=== PATIENT | male | born 1940 | race Caucasian/White ===

== ENCOUNTER → 2016-08-29 | Outpatient (CLI) | payer MEDICARE ==
[~2016-08-29] MED LIST: CLEAPOW2 PO; CLON1TAB PO; DIAZ5 PO; ECOT325T PO; FERR325T PO; GABA600T PO; LASI20TA PO; MAGN400T PO; METO25CR PO; MORP1INJ INTRACATH; MORP1INJ45 PO; NIAC500T5 PO; ROSU5 PO; STOO100T PO
[2016-08-29 13:21] LABS: HDL CHOLESTEROL 39.2 MG/DL (40.0-60.0); INDIRECT BILIRUBIN 0.4 MG/DL (0.0-0.8); TOTAL BILIRUBIN ADULT 0.5 MG/DL (0.2-1.0)
== END ==
LOC: PLAB 10:49
PROVIDERS: ATTEND Internal Medicine Interventional Cardiology
DX: E78.2 Mixed hyperlipidemia (principal); Z79.899 Other long term (current) drug therapy
CPT/HCPCS: 36415; 80061; 80076

== ENCOUNTER → 2016-09-29 | Outpatient (CLI) | payer MEDICARE ==
[2016-09-29 17:16] LABS: POTASSIUM 4.3 MEQ/L (3.5-5.1)
== END ==
LOC: PLAB 14:11
PROVIDERS: ATTEND Internal Medicine Interventional Cardiology
DX: I71.4 Abdominal aortic aneurysm, without rupture (principal); R94.39 Abnormal result of other cardiovascular function study; I77.9 Disorder of arteries and arterioles, unspecified; I25.10 Atherosclerotic heart disease of native coronary artery without angina pectoris; R60.0 Localized edema; I10 Essential (primary) hypertension; I25.5 Ischemic cardiomyopathy; E78.2 Mixed hyperlipidemia; I73.9 Peripheral vascular disease, unspecified; Z72.0 Tobacco use; Z68.30 Body mass index [BMI] 30.0-30.9, adult; Z95.1 Presence of aortocoronary bypass graft
CPT/HCPCS: 36415; 82565; 84132; 84295; 84520

== ENCOUNTER → 2016-10-20 | Outpatient (CLI) | payer MEDICARE ==
[2016-10-20 17:37] LABS: POTASSIUM 4.2 MEQ/L (3.5-5.1)
== END ==
LOC: PLAB 14:35
PROVIDERS: ATTEND Internal Medicine Interventional Cardiology
DX: I10 Essential (primary) hypertension (principal); R60.0 Localized edema; E87.1 Hypo-osmolality and hyponatremia
CPT/HCPCS: 36415; 82565; 84132; 84295; 84520

== ENCOUNTER → 2016-11-03 | Outpatient (CLI) | payer MEDICARE ==
[2016-11-03 13:11] LABS: AUTOMATED NEUTROPHIL # 3.5 TH/MM3 (1.8-7.7); BASOPHIL % 0.7 % (0.0-2.0); EOSINOPHIL # 0.1 TH/MM3 (0-0.4); EOSINOPHIL % 3.1 % (0.0-4.0); HEMATOCRIT 45.4 % (39.0-51.0); HEMO FLAGS DIFF FINAL; LYMPH % 11.4 % (9.0-44.0); LYMPHOCYTE # 0.5 TH/MM3 (1.0-4.8); MEAN CELL VOLUME 101.2 FL (80.0-100.0); MEAN CORPUSCULAR HEMOGLOBIN 33.8 PG (27.0-34.0); MEAN CORPUSCULAR HGB CONC 33.4 % (32.0-36.0); MONO % 11.6 % (0.0-8.0); NEUT % 73.2 % (16.0-70.0); PLATELET COUNT 126 TH/MM3 (150-450); RED BLOOD COUNT 4.48 MIL/MM3 (4.50-5.90); RED CELL DISTRIBUTION WIDTH 15.9 % (11.6-17.2); WHITE BLOOD COUNT 4.7 TH/MM3 (4.0-11.0)
[2016-11-03 13:29] LABS: ANION GAP 3 MEQ/L (5-15); BICARBONATE 34.6 MEQ/L (21.0-32.0); BLOOD UREA NITROGEN 10 MG/DL (7-18); CHLORIDE 99 MEQ/L (98-107); GLOMERULAR FILTRATION RATE 178 ML/MIN (>89); GLUCOSE,FASTING 86 MG/DL (74-99); SODIUM (NA) 137 MEQ/L (136-145)
[2016-11-03 13:30] LABS: ALT (GPT) 17 U/L (12-78); AST (GOT) 15 U/L (15-37)
[2016-11-03 13:33] LABS: ALKALINE PHOSPHATASE 70 U/L (45-117); HDL CHOLESTEROL 44.7 MG/DL (40.0-60.0); LDL CHOLESTEROL 75 MG/DL (0-99); TOTAL BILIRUBIN ADULT 0.4 MG/DL (0.2-1.0)
== END ==
LOC: PLAB 08:33
PROVIDERS: ATTEND Family Medicine
DX: I25.10 Atherosclerotic heart disease of native coronary artery without angina pectoris (principal); D50.0 Iron deficiency anemia secondary to blood loss (chronic); I10 Essential (primary) hypertension; E55.9 Vitamin D deficiency, unspecified; E78.2 Mixed hyperlipidemia
CPT/HCPCS: 36415; 80053; 80061; 82306; 85025

== ENCOUNTER → 2016-12-21 | Outpatient (CLI) | payer MEDICARE ==
[2016-12-21 14:04] LABS: HDL CHOLESTEROL 47.9 MG/DL (40.0-60.0); INDIRECT BILIRUBIN 0.3 MG/DL (0.0-0.8); TOTAL BILIRUBIN ADULT 0.4 MG/DL (0.2-1.0)
== END ==
LOC: PLAB 08:36
PROVIDERS: ATTEND Internal Medicine Interventional Cardiology
DX: E78.2 Mixed hyperlipidemia (principal); Z79.899 Other long term (current) drug therapy
CPT/HCPCS: 36415; 80061; 80076; 82550

== ENCOUNTER → 2017-03-15 | Outpatient (CLI) | payer MEDICARE ==
[2017-03-15 15:33] LABS: HDL CHOLESTEROL 47.6 MG/DL (40.0-60.0); INDIRECT BILIRUBIN 0.5 MG/DL (0.0-0.8); TOTAL BILIRUBIN ADULT 0.7 MG/DL (0.2-1.0)
== END ==
LOC: PLAB 10:35
PROVIDERS: ATTEND Internal Medicine Interventional Cardiology
DX: E78.2 Mixed hyperlipidemia (principal); Z79.899 Other long term (current) drug therapy
CPT/HCPCS: 36415; 80061; 80076; 82550

== ENCOUNTER 2017-07-27 16:01 | Inpatient (IN) | payer MEDICARE ==
[~2017-07-27] VITALS: Ht 182.9 cm; Wt 113.5 kg
[2017-07-27 16:11] VITALS: BP 105/53; PULSE 65; RESP 18; TEMP 97.9; O2SAT 94
[2017-07-27] MEDS ORDERED: METO50TA PO (16:55)
[2017-07-27] MEDS ORDERED: POTA10TA2 PO (16:55)
[2017-07-27] MEDS ORDERED: ROSU1TAB4 PO (16:55)
[2017-07-27] MEDS ORDERED: CHOL5000 PO (16:55)
[2017-07-27] MEDS ORDERED: CRANCAP9 PO (16:55)
[2017-07-27] MEDS ORDERED: ISOS30TA3 PO (16:55)
[2017-07-27] MEDS ORDERED: NIAC100T2 PO (16:55)
[2017-07-27] MEDS ORDERED: MORP-43 PO (16:55)
[2017-07-27] MEDS ORDERED: IPRA0.06 NEB (16:55)
[2017-07-27] MEDS ORDERED: MORPHINE PO (16:55)
[2017-07-27] MEDS ORDERED: CLON0.5T PO (16:55)
[2017-07-27] MEDS ORDERED: FURO1TAB62 PO (16:55)
[2017-07-27] MEDS ORDERED: COEN1CAP PO (16:55)
[2017-07-27] MEDS ORDERED: GABA600T PO (16:55)
[2017-07-27] MEDS ORDERED: areds PO (16:55)
[2017-07-27] MEDS ORDERED: ASPI1TAB57 PO (16:55)
[2017-07-27] MEDS ORDERED: FERR325T18 PO (16:55)
[2017-07-27] MEDS ORDERED: morphine pump IV (16:55)
[2017-07-27] MEDS ORDERED: DIAZ5TAB PO (16:55)
[2017-07-27] MEDS ORDERED: VANCOMYCIN INJ 1,000 MG in SODIUM CHLOR 0.9% 250 ML INJ 250 ML IV ONE (17:00)
--- NOTE | 2017-07-27 17:50 | PD ---
HPI Chief Complaint: Edema Time Seen by Provider: 16:25 Travel History International Travel<30 days: No Contact w/Intl Traveler<30days: No Traveled to known affect area: No History of Present Illness HPI 76-year-old male complains of left leg pain and swelling and redness. Patient states that the symptoms started 5 days ago. Patient states that the redness and swelling and pain started on left lower leg and extended proximally. Patient denies any fever chills. Patient denies any headache. Patient denies any chest pain or shortness of breath. Patient denies abdominal pain. Patient has a recurrent lesions on the left knee that occasionally with bleeding. Patient has history of, tunnel syndrome, chronic paraplegic, COPD, CAD, hyperlipidemia, hypertension, obstructive sleep apnea, peripheral vascular disease and pulmonary venoocclusive disease. PFSH Past Medical History Arthritis: Yes Asthma: No Autoimmune Disease: No Anxiety: No Depression: Yes Heart Rhythm Problems: No Cancer: No Cardiovascular Problems: Yes (HTN, high chol., CABG) High Cholesterol: Yes Chemotherapy: No Chest Pain: No Congestive Heart Failure: No COPD: Yes Cerebrovascular Accident: No Diabetes: No Diminished Hearing: No Endocrine: No GERD: No Glaucoma: No Genitourinary: Yes (NEUROGENIC BLADDER, SUPRAPUBIC CATHETER) Headaches: No Hepatitis: No Hiatal Hernia: No Hypertension: Yes Immune Disorder: No Kidney Stones: No Medical other: Yes Musculoskeletal: Yes (SPINAL STENOSIS, BOTH HIPS PERMANENTLY FLEXED) Neurologic: Yes (PARALYZED WAIST DOWN) Psychiatric: No Reproductive: No Respiratory: Yes (emphysema) Migraines: No Myocardial Infarction: No Radiation Therapy: No Renal Failure: No Seizures: No Sickle Cell Disease: No Sleep Apnea: No Thyroid Disease: No Ulcer: No Tetanus Vaccination: > 5 Years Influenza Vaccination: No Past Surgical History Abdominal Surgery: Yes (AAA REPAIR) AICD: No Appendectomy: No Arteriovenous Shunt: No Body Medical Devices: MORPHINE PAIN PUMP IN BACK, TITANIUM LOWER BACK,LEG STENTS, STERNAL WIRES Cardiac Surgery: Yes (QUAD BYPASS) Cholecystectomy: No Coronary Artery Bypass Graft: Yes (2007) Ear Surgery: No Endocrine Surgery: No Eye Surgery: No Genitourinary Surgery: Yes (SUPRAPUBIC CATHETER) Gynecologic Surgery: No Insulin Pump: No Joint Replacement: No Neurologic Surgery: Yes (4 LUMBAR SURGERY..CERVICAL...NEUROSTIMULATOR PLACED AND REMOVED) Oral Surgery: No Pacemaker: No Thoracic Surgery: No Other Surgery: Yes (LUMBAR SURGERY..CERVICAL...NEUROSTIMULATOR) Social History Alcohol Use: No Tobacco Use: Yes (4-5 CIGAR) Substance Use: No Allergies-Medications (Allergen,Severity, Reaction): Coded Allergies: morphine (Unverified Allergy, Severe, Hallucinations, 12/20/16) pt states morphine condenser tester pump caused hallucinations takes po morphine adhesive (Unverified Allergy, Mild, RASH EXCEPT FOR PAPER, 12/20/16) MRI PRECAUTION (Verified Adverse Reaction, Severe, 02/17/15) SPINAL CORD STIMULATOR NON COMPATIBLE 10-21-[address] [facility] DR Jac VELEZ *MDRO Multi-Drug Resistant Organism (Verified Adverse Reaction, Unknown, 02/17/15) MRSA finger wound 10/2014. Reported Meds & Prescriptions Reported Meds & Active Scripts Active Reported Diazepam 5 Mg Tab 5 Mg PO DAILY Morphabond ER 12 HR (Morphine Sulfate) 15 Mg Tab 15 Mg PO Q12H Lasix (Furosemide) 20 Mg Tab 20 Mg PO DAILY Ipratropium [place] 42 Mcg (0.06 %) [place] 0.02 Nebule NEB QID NEB Clonazepam 0.5 Mg Tab 0.5 Mg PO HS Co Q-10 (Coenzyme Q10 (Ubidecarenone)) 100 Mg Cap 1 Tab PO DAILY Rosuvastatin (Rosuvastatin Calcium) 5 Mg Tab 2.5 Mg PO MON, MON, MON Isosorbide Mononitrate ER (Isosorbide Mononitrate) 30 Mg Charlie 30 Mg PO DAILY Potassium Chloride ER (Potassium Chloride) 10 Meq Tab 10 Meq PO HS Aspirin 81 (Aspirin) 81 Mg Tabdr 81 Mg PO DAILY [areds] 1 Tab PO DAILY Niacin 100 Mg Tab 100 Mg PO DAILY Metoprolol Tartrate 50 Mg Tab 50 Mg PO HS Cranberry Plus Vitamin C (Cranberry-Vitamin C-Vitamin E) 140-100-3 Mg-Mg-Unit Cap 1 Tab PO DAILY Vitamin D3 (Cholecalciferol) 5,000 Unit Cap 5,000 Units PO BID Ferrous Sulfate 325 Mg (65 Mg Iron) Tablet 325 Mg PO DAILY Gabapentin 600 Mg Tab 600 Mg PO BID [morphine bolus] 0.35 Mg PO TID [morphine pump] 1.797 Mg IV DAILY Review of Systems General / Constitutional: No: Fever Eyes: No: Visual changes HENT: No: Headaches Cardiovascular: No: Chest Pain or Discomfort Respiratory: No: Shortness of Breath Gastrointestinal: No: Abdominal Pain Genitourinary: No: Dysuria Musculoskeletal: Positive: Edema, Pain Skin: No Rash Neurologic: No: Weakness Psychiatric: No: Depression Endocrine: No: Polydipsia Hematologic/Lymphatic: No: Easy Bruising Physical Exam Narrative GENERAL: Well-nourished, well-developed patient. SKIN: Focused skin assessment warm/dry. HEAD: Normocephalic. EYES: No scleral icterus. No injection or drainage. NECK: Supple, trachea midline. No JVD or lymphadenopathy. CARDIOVASCULAR: Regular rate and rhythm without murmurs, gallops, or rubs. RESPIRATORY: Breath sounds equal bilaterally. No accessory muscle use. GASTROINTESTINAL: Abdomen soft, non-tender, nondistended. MUSCULOSKELETAL: Patient has redness swelling tenderness involving the left foot , left lower extremity up to below the knee. Increase in heat noted. No induration noted. BACK: Nontender without obvious deformity. No CVA tenderness. Neurologic exam normal. Data Data Last Documented VS Vital Signs Date Time Temp Pulse Resp B/P (MAP) Pulse Ox O2 Delivery O2 Flow Rate FiO2 07/27/17 18:42 61 16 101/45 (63) 93 Room Air 07/27/17 16:11 97.9 Orders Orders Complete Blood Count With Diff (07/27/17 16:57) Comprehensive Metabolic Panel (07/27/17 16:57) Prothrombin Time / Inr (Pt) (07/27/17 16:57) Act Partial Throm Time (Ptt) (07/27/17 16:57) Blood Culture (07/27/17 16:57) Iv Access Insert/Monitor (07/27/17 16:57) Ecg Monitoring (07/27/17 16:57) Oximetry (07/27/17 16:57) Us Leg Venous Doppler (07/27/17 16:57) Sodium Chlor 0.9% 1000 Ml Inj (Ns 1000 M (07/27/17 17:00) Vancomycin Inj (Vancomycin Inj) (07/27/17 17:00) Labs Laboratory Tests Test 07/27/17 18:35 White Blood Count 6.0 TH/MM3 Red Blood Count 4.92 MIL/MM3 Hemoglobin 17.3 GM/DL Hematocrit 51.2 % Mean Corpuscular Volume 104.1 FL Mean Corpuscular Hemoglobin 35.2 PG Mean Corpuscular Hemoglobin Concent 33.8 % Red Cell Distribution Width 16.9 % Platelet Count 71 TH/MM3 Mean Platelet Volume 8.7 FL Neutrophils (%) (Auto) 76.5 % Lymphocytes (%) (Auto) 9.9 % Monocytes (%) (Auto) 11.3 % Eosinophils (%) (Auto) 1.6 % Basophils (%) (Auto) 0.7 % Neutrophils # (Auto) 4.6 TH/MM3 Lymphocytes # (Auto) 0.6 TH/MM3 Monocytes # (Auto) 0.7 TH/MM3 Eosinophils # (Auto) 0.1 TH/MM3 Basophils # (Auto) 0.0 TH/MM3 CBC Comment AUTO DIFF Prothrombin Time 15.1 SEC Prothromb Time International Ratio 1.5 RATIO Activated Partial Thromboplast Time 30.3 SEC Blood Urea Nitrogen 9 MG/DL Creatinine 0.61 MG/DL Random Glucose 83 MG/DL Total Protein 7.4 GM/DL Albumin 3.3 GM/DL Calcium Level 8.5 MG/DL Alkaline Phosphatase 67 U/L Aspartate Amino Transf (AST/SGOT) 15 U/L Alanine Aminotransferase (ALT/SGPT) 15 U/L Total Bilirubin 0.9 MG/DL Sodium Level 133 MEQ/L Potassium Level 4.1 MEQ/L Chloride Level 94 MEQ/L Carbon Dioxide Level 34.1 MEQ/L Anion Gap 5 MEQ/L Estimat Glomerular Filtration Rate 129 ML/MIN [facility] Medical Decision Making Medical Screen Exam Complete: Yes Emergency Medical Condition: Yes Interpretation(s) 1932 PM. Last Impressions Lower Extremity Ultrasound 07/27/17 8577 Signed Impressions: Service Date/Time: July 18:05 - CONCLUSION: Normal examination. Froylan Bocanegra MD 1932 PM. CBC WBC 6.0. Hemoglobin 17.3 hematocrit 51.2. MCV 104.1. 76 neutrophil. Sodium 133. Bicarb 34.1. CMP otherwise within normal limits. INR 1.5. Differential Diagnosis Differential diagnosis including cellulitis, abscess, DVT. Narrative Course 76-year-old male with increased redness swelling tenderness left leg. Diagnosis Primary Impression: Left leg cellulitis Admitting Information Admitting Physician Requests: Admit Christoph Machado MD Jul 27, 2017 17:50
[2017-07-27] MEDS: SODIUM CHLOR 0.9% 1000 ML INJ 1,000 ML IV SCH (18:01)
[2017-07-27 18:34] VITALS: RESP 18; O2SAT 93; O2SAT 98
[2017-07-27 18:42] VITALS: BP 101/45; PULSE 61; RESP 16; O2SAT 93
--- NOTE | 2017-07-27 18:55 | RADRPT ---
EXAM DATE/TIME: 07/27/2017 18:05 [facility] COMPARISON: No previous studies available for comparison. INDICATIONS : Left leg swelling and redness. MEDICAL HISTORY : Hypercholesterolemia. Hypertension. Chronic obstructive pulmonary disease. Emphysema. SURGICAL HISTORY : CABG Spinal surgery. Partial amputation, right index finger. Carpal tunnel release. ENCOUNTER: Initial ACUITY: 3 days PAIN SCORE: 0/10 LOCATION: Left leg. TECHNIQUE: Venous ultrasound of the leg was performed from the inguinal ligament to the proximal calf. Real-lashawn e, color Doppler and spectral tracing, compression and augmentation techniques were used. FINDINGS: There is normal compressibility of the deep venous system from the inguinal region to the proximal ca lf. No echogenic clot is seen in the lumen of the common femoral, femoral, popliteal, and posterior tibial veins. There is a normal response of the venous system to proximal and distal augmentation an d respiration. CONCLUSION: Normal examination. Froylan Bocanegra MD on July 27, 2017 at 18:51 Board Certified Radiologist. This report was verified electronically.
[2017-07-27 18:59] LABS: CHLORIDE 94 MEQ/L (98-107); SODIUM (NA) 133 MEQ/L (136-145)
[2017-07-27 19:02] LABS: AUTOMATED NEUTROPHIL # 4.6 TH/MM3 (1.8-7.7); BASOPHIL % 0.7 % (0.0-2.0); EOSINOPHIL # 0.1 TH/MM3 (0-0.4); EOSINOPHIL % 1.6 % (0.0-4.0); HEMATOCRIT 51.2 % (39.0-51.0); HEMOGLOBIN 17.3 GM/DL (13.0-17.0); LYMPH % 9.9 % (9.0-44.0); LYMPHOCYTE # 0.6 TH/MM3 (1.0-4.8); MEAN CELL VOLUME 104.1 FL (80.0-100.0); MEAN CORPUSCULAR HEMOGLOBIN 35.2 PG (27.0-34.0); MEAN CORPUSCULAR HGB CONC 33.8 % (32.0-36.0); MEAN PLATELET VOLUME 8.7 FL (7.0-11.0); MONO % 11.3 % (0.0-8.0); MONOCYTE # 0.7 TH/MM3 (0-0.9); NEUT % 76.5 % (16.0-70.0); PLATELET COUNT 71 TH/MM3 (150-450); RED BLOOD COUNT 4.92 MIL/MM3 (4.50-5.90); RED CELL DISTRIBUTION WIDTH 16.9 % (11.6-17.2)
[2017-07-27 19:03] LABS: CALCIUM 8.5 MG/DL (8.5-10.1)
[2017-07-27 19:04] LABS: ALBUMIN 3.3 GM/DL (3.4-5.0); BICARBONATE 34.1 MEQ/L (21.0-32.0); BLOOD UREA NITROGEN 9 MG/DL (7-18); GLUCOSE,RANDOM 83 MG/DL (74-106)
[2017-07-27 19:07] LABS: ALT (GPT) 15 U/L (12-78); AST (GOT) 15 U/L (15-37); CREATININE 0.61 MG/DL (0.60-1.30); GLOMERULAR FILTRATION RATE 129 ML/MIN (>89); INTERNATIONAL NORMALIZED RATIO 1.5 RATIO; PROTHROMBIN TIME - PATIENT 15.1 SEC (9.8-11.6)
[2017-07-27 19:08] LABS: TOTAL BILIRUBIN ADULT 0.9 MG/DL (0.2-1.0); TOTAL PROTEIN 7.4 GM/DL (6.4-8.2)
[2017-07-27 19:09] LABS: ALKALINE PHOSPHATASE 67 U/L (45-117)
[2017-07-27] MEDS ORDERED: NALOXONE HCL 0.4 MG/ML AMP IV PUSH PRN (19:45)
[2017-07-27] MEDS ORDERED: SODIUM CHLORIDE 0.9% FLUSH 10 ML FLUSH IV FLUSH PRN (19:45)
[2017-07-27] MEDS: SODIUM CHLORIDE 0.9% FLUSH 10 ML FLUSH IV FLUSH SCH (21:00)
[2017-07-27 21:05] VITALS: BP 119/66; PULSE 73; RESP 18; O2SAT 94
[2017-07-27 21:10] VITALS: BP 144/78; PULSE 70; RESP 18; O2SAT 100
[2017-07-27] MEDS ORDERED: clonazePAM 0.5 MG TAB PO ONE (22:30)
[2017-07-27] MEDS ORDERED: clonazePAM 1 MG TAB PO ONE (22:45)
[2017-07-27 23:15] VITALS: BP 141/66; PULSE 64; RESP 18; O2SAT 91
[2017-07-28] VITALS (10 sets, daily range): BP systolic 112–144; BP diastolic 54–64; PULSE 65–75; RESP 16–20; TEMP 96.2–99.2; O2SAT 88–93
[2017-07-28] MEDS: SODIUM CHLOR 0.9% 1000 ML INJ 1,000 ML IV SCH ×3 (04:29→22:29)
[2017-07-28] MEDS ORDERED: SODIUM CHLORIDE 0.65% NASAL SPRAY 45 ML BTL EACH NARE PRN (05:00)
[2017-07-28 06:53] LABS: AUTOMATED NEUTROPHIL # 3.7 TH/MM3 (1.8-7.7); BASOPHIL % 0.3 % (0.0-2.0); EOSINOPHIL # 0.1 TH/MM3 (0-0.4); EOSINOPHIL % 1.7 % (0.0-4.0); HEMATOCRIT 49.6 % (39.0-51.0); HEMOGLOBIN 15.6 GM/DL (13.0-17.0); LYMPH % 7.8 % (9.0-44.0); LYMPHOCYTE # 0.4 TH/MM3 (1.0-4.8); MEAN CELL VOLUME 104.4 FL (80.0-100.0); MEAN CORPUSCULAR HEMOGLOBIN 32.8 PG (27.0-34.0); MEAN CORPUSCULAR HGB CONC 31.4 % (32.0-36.0); MEAN PLATELET VOLUME 9.5 FL (7.0-11.0); MONO % 13.5 % (0.0-8.0); MONOCYTE # 0.7 TH/MM3 (0-0.9); NEUT % 76.7 % (16.0-70.0); PLATELET COUNT 75 TH/MM3 (150-450); RED BLOOD COUNT 4.75 MIL/MM3 (4.50-5.90); RED CELL DISTRIBUTION WIDTH 16.5 % (11.6-17.2); WHITE BLOOD COUNT 4.9 TH/MM3 (4.0-11.0)
[2017-07-28 07:21] LABS: BICARBONATE 32.8 MEQ/L (21.0-32.0); CALCIUM 8.3 MG/DL (8.5-10.1)
[2017-07-28 07:25] LABS: CREATININE 0.49 MG/DL (0.60-1.30)
[2017-07-28] MEDS: SODIUM CHLORIDE 0.9% FLUSH 10 ML FLUSH IV FLUSH SCH ×2 (08:32→22:22)
[2017-07-28] MEDS: LEVOFLOXACIN 750 MG PREMIX INJ 150 ML IV SCH (08:32)
--- NOTE | 2017-07-28 11:54 | HHI.HP ---
[facility]PI [facility] Yas Gallo MD Admission Diagnosis Left leg cellulitis Diagnoses: Chief Complaint: left leg infection Travel History International Travel<30 Days: No Contact w/Intl Traveler <30 Da: No Traveled to Known Affected Are: No History of Present Illness 76-year-old male with PMH of paraplegia noncompliant with meds, HTN, HLD, COPD CAD with CABG, pulm. venoocclusive disease complains of left leg pain and swelling and redness. Patient states that the symptoms started 5 days ago. Patient states that the redness and swelling and pain started on left lower leg and extended proximally. Patient denies any fever chills. Patient denies any headache. Patient denies any chest pain or shortness of breath. Patient denies abdominal pain. Patient has a recurrent lesions on the left knee that occasionally with bleeding. He is also noncompliant with meds. Says she cant afford meds for COPD , also continues to smoke cigars. Complaints of sob and is wheezing . No fever or chills. No much cough. Review of Systems Except as stated in HPI: all other systems reviewed are Neg Past Family Social History Past Medical History Hyperlipidemia Hypertension Coronary artery disease Paraplegic secondary to back trauma Abdominal aortic aneurysm. Status post repair Peripheral arterial disease Chronic back pain Carpal tunnel syndrome, h/o osteomyelitis hand, chronic paraplegic, neurogenic bladder with suprapubic cath, spinal stenosis, COPD, CAD, hyperlipidemia, hypertension, obstructive sleep apnea, peripheral vascular disease and pulmonary venoocclusive disease. Past Surgical History Three-vessel CABG Abdominal aortic aneurysm repair Multiple back surgeries Suprapubic catheter Bilateral leg stents Reported Medications Reported Meds & Active Scripts Active Reported Diazepam 5 Mg Tab 5 Mg PO DAILY Morphabond ER 12 HR (Morphine Sulfate) 15 Mg Tab 15 Mg PO Q12H Lasix (Furosemide) 20 Mg Tab 20 Mg PO DAILY Ipratropium [place] 42 Mcg (0.06 %) [place] 0.02 Nebule NEB QID NEB Clonazepam 0.5 Mg Tab 0.5 Mg PO HS Co Q-10 (Coenzyme Q10 (Ubidecarenone)) 100 Mg Cap 1 Tab PO DAILY Rosuvastatin (Rosuvastatin Calcium) 5 Mg Tab 2.5 Mg PO MON, MON, MON Isosorbide Mononitrate ER (Isosorbide Mononitrate) 30 Mg Charlie 30 Mg PO DAILY Potassium Chloride ER (Potassium Chloride) 10 Meq Tab 10 Meq PO HS Aspirin 81 (Aspirin) 81 Mg Tabdr 81 Mg PO DAILY [areds] 1 Tab PO DAILY Niacin 100 Mg Tab 100 Mg PO DAILY Metoprolol Tartrate 50 Mg Tab 50 Mg PO HS Cranberry Plus Vitamin C (Cranberry-Vitamin C-Vitamin E) 140-100-3 Mg-Mg-Unit Cap 1 Tab PO DAILY Vitamin D3 (Cholecalciferol) 5,000 Unit Cap 5,000 Units PO BID Ferrous Sulfate 325 Mg (65 Mg Iron) Tablet 325 Mg PO DAILY Gabapentin 600 Mg Tab 600 Mg PO BID [morphine bolus] 0.35 Mg PO TID [morphine pump] 1.797 Mg IV DAILY Allergies: Coded Allergies: morphine (Unverified Allergy, Severe, Hallucinations, 12/20/16) 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 motion picture pump caused hallucinations takes po morphine adhesive (Unverified Allergy, Mild, RASH EXCEPT FOR PAPER, 12/20/16) MRI PRECAUTION (Verified Adverse Reaction, Severe, 02/17/15) SPINAL CORD STIMULATOR NON COMPATIBLE 10-21-[address] [facility] [address] Jac VELEZ Family History Mother HTN Father stroke Social History Patient occasionally smokes cigars, no alcohol, no drugs Physical Exam Vital Signs Vital Signs Date Time Temp Pulse Resp B/P (MAP) Pulse Ox O2 Delivery O2 Flow Rate FiO2 07/28/17 08:00 99.2 73 20 116/54 (74) 91 07/28/17 05:29 75 07/28/17 00:15 97.4 68 20 144/64 (90) 92 07/28/17 00:10 07/27/17 23:15 64 18 141/66 (91) 91 Room Air 07/27/17 21:10 73 18 Room Air 94 07/27/17 21:05 73 18 119/66 (83) 94 Room Air 07/27/17 18:42 61 16 101/45 (63) 93 Room Air 07/27/17 18:34 18 93 Room Air 07/27/17 16:33 Room Air 07/27/17 16:11 97.9 65 18 105/53 (70) 94 Room Air Physical Exam GENERAL: This is a well-nourished, well-developed patient, in no apparent distress. SKIN: No rashes, ecchymoses or lesions. Cool and dry. HEAD: Atraumatic. Normocephalic. No temporal or scalp tenderness. EYES: Pupils equal round and reactive. Extraocular motions intact. No scleral icterus. No injection or drainage. ENT: Nose without bleeding, purulent drainage or septal hematoma. Throat without erythema, tonsillar hypertrophy or exudate. Uvula midline. Airway patent. NECK: Trachea midline. No JVD or lymphadenopathy. Supple, nontender, no meningeal signs. CARDIOVASCULAR: Regular rate and rhythm without murmurs, gallops, or rubs. RESPIRATORY: Clear to auscultation. Breath sounds equal bilaterally. No wheezes , rales, or rhonchi. GASTROINTESTINAL: Abdomen soft, non-tender, nondistended. No hepato-splenomegaly , or palpable masses. No guarding. MUSCULOSKELETAL: redness swelling tenderness involving the left foot, left lower extremity up to below the knee. Warm, no induration. NEUROLOGICAL: Awake and alert. Cranial nerves grossly intact. Paraplegic. Normal speech. Laboratory Laboratory Tests Test 07/27/17 18:35 07/28/17 05:45 White Blood Count 6.0 4.9 Red Blood Count 4.92 4.75 Hemoglobin 17.3 15.6 Hematocrit 51.2 49.6 Mean Corpuscular Volume 104.1 104.4 Mean Corpuscular Hemoglobin 35.2 32.8 Mean Corpuscular Hemoglobin Concent 33.8 31.4 Red Cell Distribution Width 16.9 16.5 Platelet Count 71 75 Mean Platelet Volume 8.7 9.5 Neutrophils (%) (Auto) 76.5 76.7 Lymphocytes (%) (Auto) 9.9 7.8 Monocytes (%) (Auto) 11.3 13.5 Eosinophils (%) (Auto) 1.6 1.7 Basophils (%) (Auto) 0.7 0.3 Neutrophils # (Auto) 4.6 3.7 Lymphocytes # (Auto) 0.6 0.4 Monocytes # (Auto) 0.7 0.7 Eosinophils # (Auto) 0.1 0.1 Basophils # (Auto) 0.0 0.0 CBC Comment AUTO DIFF AUTO DIFF Differential Comment AUTO DIFF CONFIRMED AUTO DIFF CONFIRMED Platelet Estimate LOW LOW Platelet Morphology Comment NORMAL NORMAL Prothrombin Time 15.1 Prothromb Time International Ratio 1.5 Activated Partial Thromboplast Time 30.3 Blood Urea Nitrogen 9 9 Creatinine 0.61 0.49 Random Glucose 83 91 Total Protein 7.4 Albumin 3.3 Calcium Level 8.5 8.3 Alkaline Phosphatase 67 Aspartate Amino Transf (AST/SGOT) 15 Alanine Aminotransferase (ALT/SGPT) 15 Total Bilirubin 0.9 Sodium Level 133 135 Potassium Level 4.1 3.8 Chloride Level 94 97 Carbon Dioxide Level 34.1 32.8 Anion Gap 5 5 Estimat Glomerular Filtration Rate 129 166 Date/Time Source Procedure Growth Status 07/27/17 17:30 Blood Peripheral Aerobic Blood Culture - Preliminary NO GROWTH IN 1 DAY Resulted 07/27/17 17:30 Blood Peripheral Anaerobic Blood Culture - Preliminary NO GROWTH IN 1 DAY Resulted Result Diagram: 07/28/17 0545 07/28/17 0545 Imaging Last Impressions Lower Extremity Ultrasound 07/27/177 Signed Impressions: Service Date/Time: July 18:05 - CONCLUSION: Normal examination. Froylan Bocanegra MD Caprini VTE Risk Assessment Caprini VTE Risk Assessment: Mod/High Risk (score >= 2) Caprini Risk Assessment Model Point Value = 1 Point Value = 2 Point Value = 3 Point Value = 5 Age 41-60 Minor surgery BMI > 25 kg/m2 Swollen legs Varicose veins or History of unexplained or recurrent spontaneous Oral contraceptives or hormone replacement Sepsis (< 1 month) Serious lung disease, including pneumonia (< 1 month) Abnormal pulmonary function Acute myocardial infarction Congestive heart failure (< 1 month) History of inflammatory bowel disease Medical patient at bed rest Age 61-74 Arthroscopic surgery Major open surgery (> 45 min) Laparoscopic surgery (> 45 min) Malignancy Confined to bed (> 72 hours) Immobilizing plaster cast Central venous access Age >= 75 History of VTE Family history of VTE Factor V Leiden Prothrombin 12430H Lupus anticoagulant Anticardiolipin antibodies Elevated serum homocysteine Heparin-induced thrombocytopenia Other congenital or acquired thrombophilia Stroke (< 1 month) Elective arthroplasty Hip, pelvis, or leg fracture Acute spinal cord injury (< 1 month) Prophylaxis Regimen Total Risk Factor Score Risk Level Prophylaxis Regimen 0-1 Low Early ambulation 2 Moderate Order ONE of the following: *Sequential Compression Device (SCD) *Heparin 5000 units SQ BID 3-4 Higher Order ONE of the following medications: *Heparin 5000 units SQ TID *Enoxaparin/Lovenox 40 mg SQ daily (WT < 150 kg, CrCl > 30 mL/min) *Enoxaparin/Lovenox 30 mg SQ daily (WT < 150 kg, CrCl > 10-29 mL/min) *Enoxaparin/Lovenox 30 mg SQ BID (WT < 150 kg, CrCl > 30 mL/min) AND/OR *Sequential Compression Device (SCD) 5 or more Highest Order ONE of the following medications: *Heparin 5000 units SQ TID (Preferred with Epidurals) *Enoxaparin/Lovenox 40 mg SQ daily (WT < 150 kg, CrCl > 30 mL/min) *Enoxaparin/Lovenox 30 mg SQ daily (WT < 150 kg, CrCl > 10-29 mL/min) *Enoxaparin/Lovenox 30 mg SQ BID (WT < 150 kg, CrCl > 30 mL/min) AND *Sequential Compression Device (SCD) Assessment and Plan Assessment and Plan Left leg cellulitis Paraplegic COPD with exacerbation at this time Noncompliance Chronic med problems neurogenic bladder with suprapubic cath, spinal stenosis, COPD, CAD, hyperlipidemia, hypertension, obstructive sleep apnea, peripheral vascular disease and pulmonary venoocclusive disease. Restart home meds as appropriate IVF IV abx levaquin Obtain cultures and monitor Wound care Do CXR as patient noted desatting on room air, add duonebs scheduled and prn, prednisone for 4 days. Monitor O2 closely. Give O2 supplement by NC to keep O2 sat > 92 %. Restart home meds as appropriate Discussed Condition With pt, nurse, respiratory therapist Francoise Duke MD Jul 28, 2017 11:54
[2017-07-28] MEDS ORDERED: RESP: ALBUTEROL 2.5 MG/IPRATROPIUM 0.5 MG NEB (PRN) NEB (12:00)
[2017-07-28] MEDS: RESP: ALBUTEROL 2.5 MG/IPRATROPIUM 0.5 MG NEB (SCH) NEB ×2 (12:16→15:07)
--- NOTE | 2017-07-28 12:24 | RADRPT ---
EXAM DATE/TIME: 07/28/2017 11:58 [facility] COMPARISON: CHEST SINGLE AP, October 15, 2014, 18:14. INDICATIONS : Short of breath. MEDICAL HISTORY : Hypercholesterolemia. Hypertension. Chronic obstructive pulmonary diseaseEmphysema. SURGICAL HISTORY : CABG Spinal surgery. Partial amputation, right index finger. Carpal tunnel release. ENCOUNTER: Subsequent ACUITY: 2 days PAIN SCORE: 0/10 LOCATION: Bilateral chest FINDINGS: Portable AP views of the chest demonstrate a normal-sized cardiac silhouette in this patient post med bj sternotomy. EKG lines overlie the patient. There is a neurostimulator device present with leads o verlying the thoracic spine. Abnormal lower lung zone interstitial opacities are present bilaterally with possible María B-lines. No pleural effusion or pneumothorax is identified. The bones and soft t issues demonstrate no acute finding. CONCLUSION: Abnormal interstitial opacities in the lower lung zones in a distribution and appearance suggestive o f interstitial pulmonary edema. Mckinley Camacho MD on July 28, 2017 at 12:22 Board Certified Radiologist. This report was verified electronically.
[2017-07-28] MEDS: predniSONE 20 MG TAB PO SCH (12:38)
[2017-07-28] MEDS ORDERED: FUROSEMIDE 20 MG TAB PO ONE (15:15)
[2017-07-28] MEDS ORDERED: PILL SPLITTER OTHER PRN (15:30)
[2017-07-28] MEDS: RESP: IPRATROPIUM 0.5 MG/2.5 ML NEB NEB SCH ×2 (16:00→20:50)
[2017-07-28] MEDS ORDERED: ATORVASTATIN 10 MG TAB PO SCH (16:00)
[2017-07-28] MEDS ORDERED: MORPHINE SULFATE 2 MG/ML INJ IV PUSH PRN (16:45)
[2017-07-28] MEDS: GABAPENTIN 300 MG CAP PO SCH (22:24)
[2017-07-28] MEDS: MORPHINE SULFATE 15 MG CONTROLLED RELEASE TAB PO SCH (22:26)
[2017-07-28] MEDS: CHOLECALCIFEROL (VIT D3) 5000 UNIT CAP PO SCH (22:27)
[2017-07-28] MEDS: POTASSIUM CHLORIDE 10 MEQ CONTROLLED RELEASE TAB PO SCH (22:27)
[2017-07-28] MEDS: METOPROLOL TARTRATE 50 MG TAB PO SCH (22:28)
[2017-07-28] MEDS: clonazePAM 0.5 MG TAB PO SCH (22:28)
[2017-07-29] VITALS (8 sets, daily range): BP systolic 109–120; BP diastolic 54–68; PULSE 56–76; RESP 16–18; TEMP 97.7–98.3; O2SAT 85–94
[2017-07-29] MEDS: SODIUM CHLOR 0.9% 1000 ML INJ 1,000 ML IV SCH ×2 (02:32→17:22)
[2017-07-29] MEDS: RESP: IPRATROPIUM 0.5 MG/2.5 ML NEB NEB SCH (08:00)
[2017-07-29 08:40] LABS: AUTOMATED NEUTROPHIL # 5.3 TH/MM3 (1.8-7.7); BASOPHIL % 0.2 % (0.0-2.0); EOSINOPHIL % 0.5 % (0.0-4.0); HEMATOCRIT 47.8 % (39.0-51.0); HEMOGLOBIN 15.5 GM/DL (13.0-17.0); LYMPH % 6.8 % (9.0-44.0); LYMPHOCYTE # 0.4 TH/MM3 (1.0-4.8); MEAN CORPUSCULAR HEMOGLOBIN 33.7 PG (27.0-34.0); MEAN CORPUSCULAR HGB CONC 32.4 % (32.0-36.0); MEAN PLATELET VOLUME 9.3 FL (7.0-11.0); MONOCYTE # 0.6 TH/MM3 (0-0.9); NEUT % 83.5 % (16.0-70.0); PLATELET COUNT 84 TH/MM3 (150-450); RED BLOOD COUNT 4.59 MIL/MM3 (4.50-5.90); RED CELL DISTRIBUTION WIDTH 16.5 % (11.6-17.2); WHITE BLOOD COUNT 6.4 TH/MM3 (4.0-11.0)
[2017-07-29 08:52] LABS: CALCIUM 8.5 MG/DL (8.5-10.1)
[2017-07-29 08:53] LABS: BICARBONATE 35.1 MEQ/L (21.0-32.0)
[2017-07-29] MEDS: LEVOFLOXACIN 750 MG PREMIX INJ 150 ML IV SCH (08:55)
[2017-07-29] MEDS: CHOLECALCIFEROL (VIT D3) 5000 UNIT CAP PO SCH ×2 (08:55→21:46)
[2017-07-29] MEDS: ISOSORBIDE MONONITRATE 30 MG CR TAB (IMDUR) PO SCH (08:55)
[2017-07-29 08:56] LABS: CREATININE 0.49 MG/DL (0.60-1.30)
[2017-07-29] MEDS: predniSONE 20 MG TAB PO SCH (08:56)
[2017-07-29] MEDS: FUROSEMIDE 20 MG TAB PO SCH (08:56)
[2017-07-29] MEDS: MORPHINE SULFATE 15 MG CONTROLLED RELEASE TAB PO SCH ×2 (08:57→21:46)
[2017-07-29] MEDS: GABAPENTIN 300 MG CAP PO SCH ×2 (08:57→21:45)
[2017-07-29] MEDS: FERROUS SULFATE 325 MG (65 MG ELEMENTAL IRON) TAB PO SCH (08:58)
[2017-07-29] MEDS: ASPIRIN EC 81 MG TABEC PO SCH (08:58)
[2017-07-29] MEDS: DIAZEPAM 5 MG TAB PO SCH (08:58)
[2017-07-29] MEDS: SODIUM CHLORIDE 0.9% FLUSH 10 ML FLUSH IV FLUSH SCH ×2 (08:59→21:45)
[2017-07-29] MEDS ORDERED: NIACIN 100 MG TAB PO SCH (09:00)
[2017-07-29] MEDS: RESP: ALBUTEROL 2.5 MG/IPRATROPIUM 0.5 MG NEB (SCH) NEB ×4 (10:30→18:28)
--- NOTE | 2017-07-29 11:12 | HHI.PR ---
Subjective Remarks Feels better. Less sob, satting well on 2L NC. No much wheezing. No fever or chills. Erythema and edema of left leg is improving. Pain is better controlle by meds. No n/v/d/c. Objective Vitals Vital Signs Date Time Temp Pulse Resp B/P (MAP) Pulse Ox O2 Delivery O2 Flow Rate FiO2 07/29/17 10:32 85 21 07/29/17 08:00 97.7 56 18 109/68 (82) 92 07/29/17 04:16 98.3 69 16 110/58 (75) 93 07/29/17 01:04 98.0 65 18 112/59 (76) 92 07/28/17 21:59 98.7 67 16 112/55 (74) 93 07/28/17 20:54 92 Nasal Cannula 2.00 07/28/17 20:00 74 07/28/17 16:00 97.2 66 20 142/62 (88) 92 07/28/17 15:09 92 Nasal Cannula 2.00 07/28/17 12:18 88 21 07/28/17 12:00 96.2 65 20 125/57 (79) 90 I/O 07/28/17 07/28/17 07/28/17 07/29/17 07/29/17 07/29/17 07:00 15:00 23:00 07:00 15:00 23:00 Intake Total 1360 ml 600 ml 240 ml Output Total 1045 ml 750 ml 850 ml Balance 315 ml -150 ml -850 ml 240 ml Intake Oral 360 ml 600 ml 240 ml IV Total 1000 ml Output Urine Total 1045 ml 750 ml 850 ml # Bowel Movements 0 0 Result Diagram: 07/29/17 0800 07/29/17 0800 Imaging Last Impressions Chest X-Ray 07/28/17 0000 Signed Impressions: Service Date/Time: Friday, July 28, 2017 11:58 - CONCLUSION: Abnormal interstitial opacities in the lower lung zones in a distribution and appearance suggestive of interstitial pulmonary edema. Mckinley Camacho MD Lower Extremity Ultrasound 07/27/17 7493 Signed Impressions: Service Date/Time: July 18:05 - CONCLUSION: Normal examination. Froylan Bocanegra MD Objective Remarks GENERAL: This is a well-nourished, well-developed patient, in no apparent distress. CARDIOVASCULAR: Regular rate and rhythm without murmurs, gallops, or rubs. RESPIRATORY: Clear to auscultation. Breath sounds equal bilaterally. No wheezes , rales, or rhonchi. GASTROINTESTINAL: Abdomen soft, non-tender, nondistended. No hepato-splenomegaly , or palpable masses. No guarding. MUSCULOSKELETAL: Redness, swelling, tenderness involving the left foot, left lower extremity up to below the knee improved some. Warm, no induration. NEUROLOGICAL: Awake and alert. Cranial nerves grossly intact. Paraplegic. Normal speech. 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 Restart home meds as appropriate IVF IV abx levaquin Obtain cultures and monitor Wound care Do CXR as patient noted desatting on room air, add duonebs scheduled and prn, prednisone for 4 days. Monitor O2 closely. Give O2 supplement by NC to keep O2 sat > 92 %. Restart home meds as appropriate Discussed Condition With pt, nurse Francoise Duke MD Jul 29, 2017 11:12
[2017-07-29] MEDS: clonazePAM 0.5 MG TAB PO SCH (21:45)
[2017-07-29] MEDS: METOPROLOL TARTRATE 50 MG TAB PO SCH (21:45)
[2017-07-29] MEDS: POTASSIUM CHLORIDE 10 MEQ CONTROLLED RELEASE TAB PO SCH (21:46)
[2017-07-30 00:45] VITALS: BP 107/51; PULSE 63; RESP 18; TEMP 98.6; O2SAT 93
[2017-07-30] MEDS: SODIUM CHLOR 0.9% 1000 ML INJ 1,000 ML IV SCH (02:32)
[2017-07-30 04:21] VITALS: BP 110/63; PULSE 60; RESP 16; TEMP 98.4; O2SAT 95
[2017-07-30] MEDS: RESP: ALBUTEROL 2.5 MG/IPRATROPIUM 0.5 MG NEB (SCH) NEB ×2 (07:23→11:18)
[2017-07-30 07:25] VITALS: O2SAT 94
[2017-07-30] MEDS: CHOLECALCIFEROL (VIT D3) 5000 UNIT CAP PO SCH (07:48)
[2017-07-30] MEDS: FUROSEMIDE 20 MG TAB PO SCH (07:48)
[2017-07-30] MEDS: ISOSORBIDE MONONITRATE 30 MG CR TAB (IMDUR) PO SCH (07:49)
[2017-07-30] MEDS: GABAPENTIN 300 MG CAP PO SCH (07:49)
[2017-07-30] MEDS: predniSONE 20 MG TAB PO SCH (07:49)
[2017-07-30] MEDS: ASPIRIN EC 81 MG TABEC PO SCH (07:49)
[2017-07-30] MEDS: FERROUS SULFATE 325 MG (65 MG ELEMENTAL IRON) TAB PO SCH (07:50)
[2017-07-30] MEDS: LEVOFLOXACIN 750 MG PREMIX INJ 150 ML IV SCH (07:50)
[2017-07-30] MEDS: DIAZEPAM 5 MG TAB PO SCH (07:50)
[2017-07-30] MEDS: MORPHINE SULFATE 15 MG CONTROLLED RELEASE TAB PO SCH (07:50)
[2017-07-30] MEDS: SODIUM CHLORIDE 0.9% FLUSH 10 ML FLUSH IV FLUSH SCH (07:50)
[2017-07-30 08:00] VITALS: BP 106/60; PULSE 61; RESP 20; TEMP 98.3; O2SAT 89
[2017-07-30 08:50] VITALS: RESP 20
--- NOTE | 2017-07-30 09:14 | HHI.PR ---
Subjective Remarks Says he feels much better and he wants to go home. No fever or chills overnight. No shortness of breath he is not wheezing anymore. He is not using oxygen at this time as well. No cough. Edema and swelling of his left leg improved significantly since he does not have any more pain. Objective Vitals Vital Signs Date Time Temp Pulse Resp B/P (MAP) Pulse Ox O2 Delivery O2 Flow Rate FiO2 07/30/17 08:00 98.3 61 20 106/60 (75) 89 07/30/17 07:25 94 Nasal Cannula 2.00 07/30/17 04:21 98.4 60 16 110/63 (79) 95 07/30/17 00:45 98.6 63 18 107/51 (69) 93 07/29/17 22:19 97.9 76 18 120/54 (76) 94 07/29/17 21:00 94 Nasal Cannula 2.00 07/29/17 18:30 93 Nasal Cannula 2.00 07/29/17 16:00 98.1 69 18 113/58 (76) 92 07/29/17 10:32 85 21 I/O 07/29/17 07/29/17 07/29/17 07/30/17 07/30/17 07/30/17 07:00 15:00 23:00 07:00 15:00 23:00 Intake Total 240 ml 1000 ml Output Total 850 ml 1350 ml 1500 ml Balance -850 ml 240 ml -1350 ml -500 ml Intake Oral 240 ml IV Total 1000 ml Output Urine Total 850 ml 1350 ml 1500 ml # Bowel Movements 0 0 Result Diagram: 07/29/17 0800 07/29/17 0800 Imaging Last Impressions Chest X-Ray 07/28/17 0000 Signed Impressions: Service Date/Time: Friday, July 28, 2017 11:58 - CONCLUSION: Abnormal interstitial opacities in the lower lung zones in a distribution and appearance suggestive of interstitial pulmonary edema. Mckinley Camacho MD Lower Extremity Ultrasound 07/27/17 6405 Signed Impressions: Service Date/Time: July 18:05 - CONCLUSION: Normal examination. Froylan Bocanegra MD Objective Remarks GENERAL: This is a well-nourished, well-developed patient, in no apparent distress. CARDIOVASCULAR: Regular rate and rhythm without murmurs, gallops, or rubs. RESPIRATORY: Clear to auscultation. Breath sounds equal bilaterally. No wheezes , rales, or rhonchi. GASTROINTESTINAL: Abdomen soft, non-tender, nondistended. No hepato-splenomegaly , or palpable masses. No guarding. MUSCULOSKELETAL: Redness, swelling, tenderness involving the left foot, left lower extremity up to below the knee improved some. Warm, no induration. NEUROLOGICAL: Awake and alert. Cranial nerves grossly intact. Paraplegic. Normal speech. 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 Restart home meds as appropriate IVF IV abx levaquin, changed to p.o. Obtain cultures and monitor Wound care Do CXR as patient noted desatting on room air, add duonebs scheduled and prn, prednisone for 4 days. Monitor O2 closely. Give O2 supplement by NC to keep O2 sat > 92 %. Restart home meds as appropriate Discussed Condition With pt, nurse Patient improved significantly, blood cultures so far negative. Patient responded very well to Levaquin. Discharged home in stable condition to follow- up with PCP and consultants as outpatient Francoise Duke MD Jul 30, 2017 09:14
[2017-07-30] MEDS ORDERED: LEVA750T9 PO (11:19)
--- NOTE | 2017-07-30 11:20 | HHI.DS ---
Discharge Summary Admission Date Jul 28, 2017 at 15:50 Discharge Date: Jul 30, 2017 Admitting Diagnosis Left leg cellulitis (1) COPD (chronic obstructive pulmonary disease) ICD Code: J44.9 - COPD (chronic obstructive pulmonary disease) Status: Chronic (2) Coronary artery disease ICD Code: I25.10 - Coronary artery disease Status: Chronic (3) Hyperlipidemia ICD Code: E78.5 - Hyperlipidemia Status: Chronic (4) Hypertension ICD Code: I10 - Hypertension Status: Chronic (5) CRISTOBAL (obstructive sleep apnea) ICD Code: G47.33 - Obstructive sleep apnea syndrome Status: Chronic (6) Peripheral vascular occlusive disease ICD Code: I73.9 - Peripheral vascular occlusive disease Status: Chronic (7) PVOD (pulmonary veno-occlusive disease) ICD Code: I27.0 - Pulmonary veno-occlusive disease Status: Chronic (8) Chronic paraplegia ICD Code: G82.20 - Chronic paraplegia Status: Chronic (9) Left leg cellulitis ICD Code: L03.116 - Cellulitis of left lower limb Status: Acute (10) Osteomyelitis of right hand ICD Code: M86.9 - Osteomyelitis of right hand Status: Acute Procedures none Brief History - From Admission 76-year-old male with PMH of paraplegia noncompliant with meds, HTN, HLD, COPD CAD with CABG, pulm. venoocclusive disease complains of left leg pain and swelling and redness. Patient states that the symptoms started 5 days ago. Patient states that the redness and swelling and pain started on left lower leg and extended proximally. Patient denies any fever chills. Patient denies any headache. Patient denies any chest pain or shortness of breath. Patient denies abdominal pain. Patient has a recurrent lesions on the left knee that occasionally with bleeding. He is also noncompliant with meds. Says she cant afford meds for COPD , also continues to smoke cigars. Complaints of sob and is wheezing . No fever or chills. No much cough. CBC/BMP: 07/29/17 0800 07/29/17 0800 Significant Findings Laboratory Tests Test 07/27/17 18:35 07/28/17 05:45 07/29/17 08:00 Hemoglobin 17.3 GM/DL (13.0-17.0) Hematocrit 51.2 % (39.0-51.0) Mean Corpuscular Volume 104.1 FL (80.0-100.0) 104.4 FL (80.0-100.0) 104.0 FL (80.0-100.0) Mean Corpuscular Hemoglobin 35.2 PG (27.0-34.0) Platelet Count 71 TH/MM3 (150-450) 75 TH/MM3 (150-450) 84 TH/MM3 (150-450) Neutrophils (%) (Auto) 76.5 % (16.0-70.0) 76.7 % (16.0-70.0) 83.5 % (16.0-70.0) Monocytes (%) (Auto) 11.3 % (0.0-8.0) 13.5 % (0.0-8.0) 9.0 % (0.0-8.0) Lymphocytes # (Auto) 0.6 TH/MM3 (1.0-4.8) 0.4 TH/MM3 (1.0-4.8) 0.4 TH/MM3 (1.0-4.8) Platelet Estimate LOW (NORMAL) LOW (NORMAL) LOW (NORMAL) Prothrombin Time 15.1 SEC (9.8-11.6) Activated Partial Thromboplast Time 30.3 SEC (24.3-30.1) Albumin 3.3 GM/DL (3.4-5.0) Sodium Level 133 MEQ/L (136-145) 135 MEQ/L (136-145) Chloride Level 94 MEQ/L (98-107) 97 MEQ/L (98-107) Carbon Dioxide Level 34.1 MEQ/L (21.0-32.0) 32.8 MEQ/L (21.0-32.0) 35.1 MEQ/L (21.0-32.0) Mean Corpuscular Hemoglobin Concent 31.4 % (32.0-36.0) Lymphocytes (%) (Auto) 7.8 % (9.0-44.0) 6.8 % (9.0-44.0) Creatinine 0.49 MG/DL (0.60-1.30) 0.49 MG/DL (0.60-1.30) Calcium Level 8.3 MG/DL (8.5-10.1) Anion Gap 2 MEQ/L (5-15) Imaging Last Impressions Chest X-Ray 07/28/17 0000 Signed Impressions: Service Date/Time: Friday, July 28, 2017 11:58 - CONCLUSION: Abnormal interstitial opacities in the lower lung zones in a distribution and appearance suggestive of interstitial pulmonary edema. Mckinley Camacho MD Lower Extremity Ultrasound 07/27/17 1657 Signed Impressions: Service Date/Time: July 18:05 - CONCLUSION: Normal examination. Froylan Bocanegra MD PE at Discharge GENERAL: This is a well-nourished, well-developed patient, in no apparent distress. CARDIOVASCULAR: Regular rate and rhythm without murmurs, gallops, or rubs. RESPIRATORY: Clear to auscultation. Breath sounds equal bilaterally. No wheezes , rales, or rhonchi. GASTROINTESTINAL: Abdomen soft, non-tender, nondistended. No hepato-splenomegaly , or palpable masses. No guarding. MUSCULOSKELETAL: Redness, swelling, tenderness involving the left foot, left lower extremity up to below the knee improved some. Warm, no induration. NEUROLOGICAL: Awake and alert. Cranial nerves grossly intact. Paraplegic. Normal speech. 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 Restart home meds as appropriate IVF IV abx levaquin, changed to p.o. Obtain cultures and monitor Wound care Do CXR as patient noted desatting on room air, add duonebs scheduled and prn, prednisone for 4 days. Monitor O2 closely. Give O2 supplement by NC to keep O2 sat > 92 %. Restart home meds as appropriate Discussed Condition With pt, nurse Patient improved significantly, blood cultures so far negative. Patient responded very well to Levaquin. Discharged home in stable condition to follow- up with PCP and consultants as outpatient Pt Condition on Discharge: Stable Discharge Disposition: Disch w/ Home Health Serv Discharge Time: > 30 minutes Discharge Instructions DIET: Follow Instructions for: Heart Healthy Diet, Diabetic Diet Activities you can perform: Regular-No Restrictions Follow up Referrals: PCP Follow-up - 2-3 Days New Medications: Levofloxacin (Levaquin) 750 Mg Tablet 750 MG PO DAILY for infection for 10 Days, #10 TAB Continued Medications: Aspirin DR (Aspirin 81) 81 Mg Tabdr 81 MG PO DAILY, TAB 0 Refills Cholecalciferol (Vitamin D3) 5,000 Unit Cap 5000 UNITS PO BID for Nutritional Supplement, #30 CAP 0 Refills Clonazepam (Clonazepam) 0.5 Mg Tab 0.5 MG PO HS, #60 TAB 0 Refills Coenzyme Q10 (Ubidecarenone) (Co Q-10) 100 Mg Cap 1 TAB PO DAILY Cranberry-Vitamin C-Vitamin E (Cranberry Plus Vitamin C) 140-100-3 Mg-Mg-Unit Cap 1 TAB PO DAILY Diazepam (Diazepam) 5 Mg Tab 5 MG PO DAILY, TAB 0 Refills Ferrous Sulfate (Ferrous Sulfate) 325 Mg (65 Mg Iron) Tablet 325 MG PO DAILY for Nutritional Supplement, #30 TAB 0 Refills Furosemide (Lasix) 20 Mg Tab 20 MG PO DAILY, #30 TAB 0 Refills Gabapentin (Gabapentin) 600 Mg Tab 600 MG PO BID, #60 TAB 0 Refills Ipratropium [place] (Ipratropium [place]) 42 Mcg (0.06 %) [place] 0.02 NEBULE NEB QID NEB Isosorbide Mononitrate ER (Isosorbide Mononitrate ER) 30 Mg [place] 30 MG PO DAILY for Prevent Chest Pain, #30 TAB 0 Refills Metoprolol Tartrate (Metoprolol Tartrate) 50 Mg Tab 50 MG PO HS, #30 TAB 0 Refills Morphine Sulfate ER 12 HR (Morphabond ER 12 HR) 15 Mg Tab 15 MG PO Q12H, TAB 0 Refills Niacin (Niacin) 100 Mg Tab 100 MG PO DAILY for Nutritional Supplement, #30 TAB 0 Refills Potassium Chloride ER (Potassium Chloride ER) 10 Meq Tab 10 MEQ PO HS for Electrolyte Replacement, #30 TAB 0 Refills Rosuvastatin (Rosuvastatin) 5 Mg Tab 2.5 MG PO Mon, Wed, Fri for Cholesterol Management, #30 TAB 0 Refills [areds] () 1 TAB PO DAILY [morphine bolus] () 0.35 MG PO TID [morphine pump] () 1.797 MG IV DAILY Francoise Duke MD Jul 30, 2017 11:20
--- NOTE | 2017-07-30 11:22 | HHI.FF ---
Face to Face Verification Diagnosis: (1) Peripheral vascular occlusive disease (2) COPD (chronic obstructive pulmonary disease) (3) Coronary artery disease (4) Hyperlipidemia (5) Hypertension (6) Left leg cellulitis (7) Chronic paraplegia Home Health Nursing Order: Medical education Signs/symptoms of disease process Medication education-adverse effect Nursing assessment with vital signs I have seen patient Allan Lemon on 07/30/17. My clinical findings support the need for the requested home health care services because: Ltd mobility - disease progression Patient has SOB I certify that my clinical findings support that this patient is homebound because: Post-op weakness Impaired cognitive ability/safety Hx COPD- exertion dyspnea/weakness Francoise Duke MD Jul 30, 2017 11:22
[2017-07-31] MEDS ORDERED: LEVOFLOXACIN 750 MG TAB PO SCH (09:00)
== END 2017-07-30 12:37 | disposition home or self-care (01) | DRG 603 ==
LOC: PHED 16:01 → PHEDA 19:46 → PH3A 07-28 00:13 → OBSVTOIN 07-28 15:50
PROVIDERS: ADMIT Hospitalist; ATTEND Hospitalist
DX: L03.116 Cellulitis of left lower limb (principal); G82.20 Paraplegia, unspecified; J44.1 Chronic obstructive pulmonary disease with (acute) exacerbation; N31.9 Neuromuscular dysfunction of bladder, unspecified; Z93.59 Other cystostomy status; Z91.19 Patient's noncompliance with other medical treatment and regimen; Z91.14 Patient's other noncompliance with medication regimen; M48.00 Spinal stenosis, site unspecified; I73.9 Peripheral vascular disease, unspecified; I25.10 Atherosclerotic heart disease of native coronary artery without angina pectoris; Z95.1 Presence of aortocoronary bypass graft; I10 Essential (primary) hypertension; G47.33 Obstructive sleep apnea (adult) (pediatric); E78.5 Hyperlipidemia, unspecified; F17.290 Nicotine dependence, other tobacco product, uncomplicated
CPT/HCPCS: 71045; 76937; 80048; 80053; 85025; 85610; 85730; 87040; 93971; 94640; 94664; 96361; 96365; G0378; G8987-GP; G8988-GP; J1956; J2270; J3370; J7030; J7050; J7512; J7644

== ENCOUNTER → 2017-08-22 | Outpatient (CLI) | payer MEDICARE ==
[~2017-08-22] MED LIST changes: +ASPI1TAB57 PO; +CHOL5000 PO; -CLEAPOW2 PO; +CLON0.5T PO; -CLON1TAB PO; +COEN1CAP PO; +CRANCAP9 PO; -DIAZ5 PO; +DIAZ5TAB PO; -ECOT325T PO; -FERR325T PO; +FERR325T18 PO; +FURO1TAB62 PO; +IPRA0.06 NEB; +ISOS30TA3 PO; -LASI20TA PO; +LEVA750T9 PO; -MAGN400T PO; -METO25CR PO; +METO50TA PO; +MORP-43 PO; -MORP1INJ INTRACATH; -MORP1INJ45 PO; +MORPHINE PO; +NIAC100T2 PO; -NIAC500T5 PO; +POTA10TA2 PO; +ROSU1TAB4 PO; -ROSU5 PO; -STOO100T PO; +areds PO; +morphine pump IV
[2017-08-23 00:35] LABS: BICARBONATE 40.9 MEQ/L (21.0-32.0); CALCIUM 9.9 MG/DL (8.5-10.1); CREATININE 0.76 MG/DL (0.60-1.30)
[2017-08-23 00:44] LABS: FREE T4 1.21 NG/DL (0.76-1.46)
== END ==
LOC: PLAB 15:25
PROVIDERS: ATTEND Internal Medicine Interventional Cardiology
DX: R60.0 Localized edema (principal); I10 Essential (primary) hypertension; R06.02 Shortness of breath
CPT/HCPCS: 36415; 80048; 83880; 84439; 84443